=== PATIENT | female | born 2000 | race African-American/Black ===

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

== ENCOUNTER 2023-06-17 11:14 | Emergency (ER) | payer SELFPAY | END 2023-06-17 12:00 | disposition home or self-care (01) | LOC: ERS 11:14 | DX: H65.192 Other acute nonsuppurative otitis media, left ear (principal) | CPT/HCPCS: 99282 ==

== ENCOUNTER → 2024-10-19 | Emergency (ER) | payer OTHER | LOC: ERS 20:40 | DX: Z53.21 Procedure and treatment not carried out due to patient leaving prior to being seen by health care provider (principal) ==